=== PATIENT | female | born 1935 | race Caucasian/White ===

== ENCOUNTER 2017-02-26 12:06 | Emergency (ER) | payer OTHER ==
[2017-02-26] MEDS ORDERED: SODIUM CHLORIDE 500 ML IV STA (12:41)
[2017-02-26] MEDS ORDERED: MECLIZINE HCL 25 MG TABLET (FP) PO ONE (12:41)
--- NOTE | 2017-02-26 12:47 | PDOC ---
History of Present Illness - General Chief Complaint: Pain Stated Complaint: ABD PAIN Time Seen by Provider: 02/26/17 12:10 History Source: Patient, Care Provider - History of Present Illness Timing/Duration: other (yesterday) Associated Symptoms: reports: headaches, nausea/vomiting. denies: chest pain, cough, fever/chills, shortness of breath, weakness Past History - Past Medical History Allergies/Adverse Reactions: Allergies Allergy/AdvReac Type Severity Reaction Status Date / Time No Known Allergies Allergy Verified 02/26/17 12:55 Home Medications: Ambulatory Orders Docusate Sodium [Colace -] 100 mg PO DAILY #30 capsule 02/26/17 Review of Systems - Review of Systems Constitutional: No: Chills, Fever HEENTM: No: Blurred Vision Respiratory: No: Shortness of Breath Cardiac (ROS): No: Chest Pain ABD/GI: Yes: Nausea. No: Diarrhea, Vomiting, Abdominal cramping : No: Dysuria *Physical Exam - Physical Exam General Appearance: Yes: Appropriately Dressed. No: Apparent Distress HEENT: positive: Normal Voice Neck: positive: Supple Respiratory/Chest: positive: Lungs Clear, Labored Respiration. negative: Respiratory Distress Cardiovascular: positive: Regular Rate, S1, S2 Gastrointestinal/Abdominal: positive: Soft. negative: Tender Musculoskeletal: negative: CVA Tenderness Extremity: positive: Normal Inspection. negative: Pedal Edema Integumentary: positive: Dry, Warm Neurologic: positive: Alert, Normal Mood/Affect, Motor Strength 5/5 (no nystagmus, Desire intact, no drift, no ataxia), Finger to Nose ED Treatment Course - LABORATORY CBC & Chemistry Diagram: 02/26/17 12:05 02/26/17 12:05 - RADIOLOGY Radiology Studies Ordered: Category Date Time Status HEAD CT WITHOUT CONTRAST [CT] Stat CT Scan 02/26/17 12:41 Ordered Medical Decision Making - Medical Decision Making 02/26/17 12:42 81-year-old female, history of hypertension, Alzheimer's, brought in by home school teacher for dizziness. Patient states since yesterday, she's been feeling unwell with sensation of the room spinning mostly when she is standing or walking around with vague headache and nausea. No slurred speech, visual changes, focal weakness, chest pain or shortness of breath. Denies any abdominal pain as reported at triage. No change in BM, dysuria, f/c. Patient denies history of similar dizziness in the past, but on review of home meds, is on meclizine. paraprofessional aide teacher states patient only has home care services for several hours a day, otherwise resides alone and frequently forgets to take her medications. Follows up with Dr. Sky of primary care See exam Vertigo On meclizine at home but frequently forgets meds 2/2 alzheimers as per [facility] Stable w/ unremarkable exam and non-focal in ED -meclizine -IVF -labs/ekg/CT head r/o other source -reassess -if discharged, will c/w manager of organizational development to extend home services hours 02/26/17 16:[address] head unremarkable. Patient continues to complain of dizziness. Will give dose of Valium and reassess. Patient also complaining of constipation while in ED. Will give bowel regimen and reassess 02/26/17 17:28 Patient reports feeling significantly better at this time and feels safe to go home. Did not have a bowel movement in ED after lactulose but prefers to go home on a bowel regimen. consulting solution manager arranged referral for visiting nurse to visit home. consulting solution manager also explained to patient's, daughter via phone, that patient will need additional hours at home as needs help with taking meds, etc. Daughter reports that she will contact agency to try to arrange same. Pt discharged home in care of [facility] *DC/Admit/Observation/Transfer Diagnosis at time of Disposition: Vertigo - Discharge Dispostion Disposition: HOME Condition at time of disposition: Improved - Prescriptions Prescriptions: Docusate Sodium [Colace -] 100 mg PO DAILY #30 capsule - Referrals Referrals: Eusebio Sky [Primary Care Provider] - - Patient Instructions Printed Discharge Instructions: DI for Vertigo, DI for Constipation Additional Instructions: Please take meclizine as needed for vertigo. Yang colace as directed for constipation and drink plenty of fluids We have arrange for a visiting nurse to visit your home and will most likely visit within 48 hrs. Please follow-up with your PMD this week. Return to ER if symptoms worsen Print Language: HUNGARIAN - Post Discharge Activity
[2017-02-26 12:55] VITALS: TEMP 97.4; BMI 28.4
[2017-02-26] MEDS ORDERED: MECLIZINE HCL 25 MG TABLET (FP) ONE (14:06)
[2017-02-26 14:15] LABS: BASOPHIL 0.6 % (0-2.0); EOSINOPHIL 0.1 % (0-4.5); MCH 28.1 pg (25.7-33.7); MCHC 32.4 g/dl (32.0-36.0); MEAN CELL VOLUME 86.7 fl (80-96); NEUTROPHILS 79.7 % (42.8-82.8); PLATELET COUNT 235 K/MM3 (134-434); RDW 14.6 % (11.6-15.6); WHITE BLOOD COUNT 7.9 K/mm3 (4.0-10.0)
[2017-02-26 14:34] LABS: ALBUMIN 3.6 g/dl (3.4-5.0); ANION GAP 8 (8-16); BILIRUBIN,TOTAL 0.3 mg/dL (0.2-1.0); CALCIUM 9.3 mg/dL (8.5-10.1); CO2 28 mmol/L (21-32); CREATININE 0.7 mg/dL (0.55-1.02); GLUCOSE,RANDOM 130 mg/dL (74-106); SGOT/AST 16 U/L (15-37); SGPT/ALT 17 U/L (12-78)
[2017-02-26 14:35] LABS: ALK PHOS 126 U/L (45-117); CPK 79 IU/L (26-192); TROPONIN I < 0.02 ng/ml (0.00-0.05)
[2017-02-26 14:48] LABS: URINE APPEARANCE SLCLOUDY; URINE BILIRUBIN NEGATIVE (NEGATIVE); URINE BLOOD NEGATIVE (NEGATIVE); URINE COLOR LTYELLOW; URINE GLUCOSE (UA) NEGATIVE (NEGATIVE); URINE KETONE NEGATIVE (NEGATIVE); URINE NITRITE NEGATIVE (NEGATIVE); URINE PROTEIN NEGATIVE (NEGATIVE); URINE UROBILINOGEN NEGATIVE mg/dL (0.2-1.0)
[2017-02-26] MEDS ORDERED: LACTULOSE 20 GM/30 ML UDC (FOR ORAL USE ONLY) PO ONE (16:00)
[2017-02-26] MEDS ORDERED: diazePAM 5 MG TABLET PO ONE (16:18)
[2017-02-26] MEDS ORDERED: LACTULOSE 20 GM/30 ML UDC (FOR ORAL USE ONLY) ONE (16:29)
[2017-02-26] MEDS ORDERED: diazePAM 5 MG TABLET ONE (16:30)
[2017-02-26 18:12] LABS: URINE LEUK ESTERASE 1+ (NEGATIVE)
[2017-02-26 18:21] VITALS: BP 201/84; PULSE 61
[2017-02-26 23:15] LABS: URINE BACTERIA RARE /hpf (NEGATIVE); URINE RBC NEGATIVE /hpf (0-3)
--- NOTE | 2017-02-27 18:21 | EKG ---
Test Reason : Blood Pressure : / mmHG Vent. Rate : 072 BPM Atrial Rate : 072 BPM P-R Int : 206 ms QRS Dur : 088 ms QT Int : 414 ms P-R-T Axes : 068 008 042 degrees QTc Int : 453 ms NORMAL SINUS RHYTHM NONSPECIFIC ST DEPRESSION NO PREVIOUS ECGS AVAILABLE REPEAT EKG IF CLINICALLY INDICATED Confirmed by NANDINI EVANS MD ([id number]) on 02/27/2017 6:20:52 PM Referred By: Confirmed By:NANDINI EVANS MD
== END 2017-02-26 18:23 | disposition home or self-care (01) ==
LOC: JER 12:06
PROC: 3E0337Z Introduction of Electrolytic and Water Balance Substance into Peripheral Vein, Percutaneous Approach (ICD-10-PCS; principal; 2017-02-26)
DX: R42 Dizziness and giddiness (principal); G30.9 Alzheimer's disease, unspecified; F02.80 Dementia in other diseases classified elsewhere, unspecified severity, without behavioral disturbance, psychotic disturbance, mood disturbance, and anxiety
CPT/HCPCS: 36415; 70450-TC; 80053; 81003; 81015; 82550; 83690; 84484; 85025; 93005; 93010; 96360; 99283-25